=== PATIENT | female | born 1940 | race Caucasian/White ===

== ENCOUNTER 2021-07-27 23:19 | Observation (INO) | payer MEDICARE ==
--- NOTE | 2021-07-27 23:36 | EDM.PDOC ---
ED HPI GENERAL MEDICAL PROBLEM - General Chief Complaint: Neurological Problem Stated Complaint: DIZZINESS, DISORIENTED Time Seen by Provider: 07/27/21 23:26 Source of Information: Reports: Patient, EMS, Family History Limitations: Reports: Altered Mental Status - History of Present Illness INITIAL COMMENTS - FREE TEXT/NARRATIVE: Is 80-year-old female history of dementia and A. fib presented today for altered mental status. Patient son told EMS that she seemed all from her normal baseline yet there. EMS arrived and also noted she was atrial fibrillation at heart rate above 120. On exam patient does not really provide much history says she feels fine. There was no complaints of any fever chills nausea vomiting or any head injuries or falls. - Related Data Allergies Allergy/AdvReac Type Severity Reaction Status Date / Time No Known Allergies Allergy Verified 01/12/21 05:10 Home Meds: Home Meds FLUoxetine HCl [Fluoxetine HCl] 20 mg PO DAILY 01/11/21 [History] Memantine [Namenda] 10 mg PO DAILY 01/11/21 [History] Acetaminophen [Tylenol] 650 mg PO Q8H PRN #30 tablet 01/17/21 [Rx] Apixaban [Eliquis] 5 mg PO BID #30 tablet 01/17/21 [Rx] Nystatin [Nystop] 1 applic TOP TID #1 bottle 01/17/21 [Rx] dilTIAZem HCL [Diltiazem 24Hr Cd] 180 mg PO DAILY #30 cap.er.24h 01/17/21 [Rx] levoFLOXacin [Levaquin] 750 mg PO DAILY #7 tab 01/17/21 [Rx] polyethylene glycoL 3350 [MiraLAX] 17 gm PO BEDTIME PRN #10 packet 01/17/21 [Rx] Past Medical History Cardiovascular History: Reports: [place] [employer] History: Reports: Neurological History: Reports: Other (See Below) Other Neuro History: Dementia, Psychiatric History: Reports: Dementia, Depression Oncologic (Cancer) History: Reports: Breast - Past Surgical History Oncologic Surgical History: Reports: Lumpectomy Social & Family History - Family History Family Medical History: No Pertinent Family History - Caffeine Use Caffeine Use: Reports: None ED ROS GENERAL - Review of Systems Review Of Systems: Unable To Obtain Reason Not Obtained: Patient altered status - Physical Exam Exam: See Below Exam Limited By: Altered Mental Status General Appearance: Alert, No Apparent Distress Eye Exam: Bilateral Eye: EOMI, PERRL Head Exam: Atraumatic Neck: Normal Inspection, Supple, Non-Tender Respiratory/Chest: No Respiratory Distress Cardiovascular: Normal Peripheral Pulses GI/Abdominal: Normal Bowel Sounds Neuro Exam (Abbreviated): Alert, Other (Not oriented which is her baseline) Extremities: Normal Inspection #1 Interpretation EKG Date: 07/28/21 Time: 11:47 Rhythm: A-Fib Rate (Beats/Min): 131 ST-T: Normal Course - Vital Signs Last Recorded V/S: Last Vital Signs Temp 98.8 F 07/27/21 23:24 Pulse 107 H 07/28/21 01:34 Resp 20 07/28/21 01:34 BP 154/90 H 07/28/21 01:34 Pulse Ox 92 L 07/28/21 01:34 - Orders/Labs/Meds Labs: Laboratory Tests 07/27/21 07/28/21 07/28/21 Range/Units 23:57 00:30 01:15 WBC (4.0-11.0) K/uL RBC (4.30-5.90) M/uL Hgb (12.0-16.0) g/dL Hct (36.0-46.0) % MCV (80.0-98.0) fL MCH (27.0-32.0) pg MCHC (31.0-37.0) g/dL RDW Std Deviation (28.0-62.0) fl RDW Coeff of Blas (11.0-15.0) % Plt Count (150-400) K/uL MPV (7.40-12.00) fL Neut % (Auto) (48.0-80.0) % Lymph % (Auto) (16.0-40.0) % Stone % (Auto) (0.0-15.0) % Eos % (Auto) (0.0-7.0) % Baso % (Auto) (0.0-1.5) % Neut # (Auto) (1.4-5.7) K/uL Lymph # (Auto) (0.6-2.4) K/uL Stone # (Auto) (0.0-0.8) K/uL Eos # (Auto) (0.0-0.7) K/uL Baso # (Auto) (0.0-0.1) K/uL Sodium (136-145) mmol/L Potassium (3.5-5.1) mmol/L Chloride (98-107) mmol/L Carbon Dioxide (21.0-32.0) mmol/L BUN (7.0-18.0) mg/dL Creatinine (0.6-1.0) mg/dL Est Cr Clr Drug Dosing mL/min Estimated GFR (MDRD) ml/min Glucose (74-106) mg/dL Lactic Acid 1.4 (0.4-2.0) mmol/L Calcium (8.5-10.1) mg/dL Phosphorus (2.6-4.7) mg/dL Magnesium (1.8-2.4) mg/dL Total Bilirubin (0.2-1.0) mg/dL AST (15-37) IU/L ALT (14-63) IU/L Alkaline Phosphatase (46-116) U/L Total Protein (6.4-8.2) g/dL Albumin (3.4-5.0) g/dL Globulin (2.6-4.0) g/dL Albumin/Globulin Ratio (0.9-1.6) Lipase (73-393) U/L Urine Color YELLOW Urine Appearance CLEAR Urine pH 5.5 (5.0-8.0) Ur Specific [place] >= 1.030 (1.001-1.035) Urine Protein NEGATIVE (NEGATIVE) mg/dL Urine Glucose (UA) NEGATIVE (NEGATIVE) mg/dL Urine Ketones NEGATIVE (NEGATIVE) mg/dL Urine Occult Blood NEGATIVE (NEGATIVE) Urine Nitrite NEGATIVE (NEGATIVE) Urine Bilirubin NEGATIVE (NEGATIVE) Urine Urobilinogen 0.2 (<2.0) EU/dL Ur Leukocyte Esterase NEGATIVE (NEGATIVE) SARS-CoV-2 RNA (MATT) NEGATIVE (NEGATIVE) 07/28/21 07/28/21 Range/Units 01:15 01:15 WBC 12.52 H (4.0-11.0) K/uL RBC 4.99 (4.30-5.90) M/uL Hgb 14.9 (12.0-16.0) g/dL Hct 45.1 (36.0-46.0) % MCV 90.4 (80.0-98.0) fL MCH 29.9 (27.0-32.0) pg MCHC 33.0 (31.0-37.0) g/dL RDW Std Deviation 48.3 (28.0-62.0) fl RDW Coeff of Blas 15 (11.0-15.0) % Plt Count 177 (150-400) K/uL MPV 11.00 (7.40-12.00) fL Neut % (Auto) 85.2 H (48.0-80.0) % Lymph % (Auto) 7.4 L (16.0-40.0) % Stone % (Auto) 6.8 (0.0-15.0) % Eos % (Auto) 0.2 (0.0-7.0) % Baso % (Auto) 0.4 (0.0-1.5) % Neut # (Auto) 10.7 H (1.4-5.7) K/uL Lymph # (Auto) 0.9 (0.6-2.4) K/uL Stone # (Auto) 0.9 H (0.0-0.8) K/uL Eos # (Auto) 0.0 (0.0-0.7) K/uL Baso # (Auto) 0.1 (0.0-0.1) K/uL Sodium 139 (136-145) mmol/L Potassium 4.2 (3.5-5.1) mmol/L Chloride 103 (98-107) mmol/L Carbon Dioxide 28.8 (21.0-32.0) mmol/L BUN 22 H (7.0-18.0) mg/dL Creatinine 1.5 H (0.6-1.0) mg/dL Est Cr Clr Drug Dosing 27.07 mL/min Estimated GFR (MDRD) 33.2 ml/min Glucose 181 H (74-106) mg/dL Lactic Acid (0.4-2.0) mmol/L Calcium 8.0 L (8.5-10.1) mg/dL Phosphorus 3.1 (2.6-4.7) mg/dL Magnesium 1.9 (1.8-2.4) mg/dL Total Bilirubin 1.0 (0.2-1.0) mg/dL AST 21 (15-37) IU/L ALT 18 (14-63) IU/L Alkaline Phosphatase 95 (46-116) U/L Total Protein 6.4 (6.4-8.2) g/dL Albumin 3.1 L (3.4-5.0) g/dL Globulin 3.3 (2.6-4.0) g/dL Albumin/Globulin Ratio 0.9 (0.9-1.6) Lipase 107 (73-393) U/L Urine Color Urine Appearance Urine pH (5.0-8.0) Ur Specific [place] (1.001-1.035) Urine Protein (NEGATIVE) mg/dL Urine Glucose (UA) (NEGATIVE) mg/dL Urine Ketones (NEGATIVE) mg/dL Urine Occult Blood (NEGATIVE) Urine Nitrite (NEGATIVE) Urine Bilirubin (NEGATIVE) Urine Urobilinogen (<2.0) EU/dL Ur Leukocyte Esterase (NEGATIVE) SARS-CoV-2 RNA (MATT) (NEGATIVE) Meds: Medications Discontinued Medications Generic Name Dose Route Start Last Admin Trade Name Freq PRN Reason Stop Dose Admin Diltiazem HCl 20 mg 07/28/21 00:28 07/28/21 03:06 Diltiazem 25 Mg/5 Ml Sdv IVPUSH 07/28/21 00:29 Not Given ONETIME ONE Diltiazem HCl 180 mg 07/28/21 02:32 07/28/21 03:22 Diltiazem 180 Mg Cap.Cd PO 07/28/21 02:33 180 mg ONETIME ONE Administration - Re-Assessments/Exams Free Text/Narrative Re-Assessment/Exam: 07/28/21 02:24 Family states patient is still altered and is not her baseline. Patient does not have a UTI so no source of why patient is more altered. We will admit patient for likely MRI tomorrow. Patient CT head is negative Departure - Departure Time of Disposition: 02:25 Disposition: Refer to Observation Condition: Good Clinical Impression: AMS (altered mental status) - Discharge Information *PRESCRIPTION DRUG MONITORING PROGRAM REVIEWED*: Not Applicable *COPY OF PRESCRIPTION DRUG MONITORING REPORT IN PATIENT DOMONIQUE: Not Applicable Sepsis Event Note (ED) - Focused Exam Vital Signs: Vital Signs Temp Pulse Resp BP Pulse Ox 07/28/21 01:34 107 H 20 154/90 H 92 L 07/27/21 23:24 98.8 F 94 28 H 154/90 H 92 L - Assessment/Plan Plan: Is 80-year-old female presents today for worsening altered mental status. Patient has baseline dementia but patient states that she is a lot worse than her normal baseline is. Patient is a high answer some questions on exam. We will obtain labs x-rays and reassess.
[2021-07-28] MEDS ORDERED: Diltiazem 25 MG/5 ML SDV IVPUSH ONE (00:28)
--- NOTE | 2021-07-28 01:17 | CR ---
Indication: Altered mental status Technique: Chest 1 view Comparison: Chest x-ray 01/11/2021 Findings/Impression: Cardiovascular and mediastinum: Normal heart size with atherosclerotic calcification. Prominence of the right superior mediastinum although similar to the prior exam. Differential includes tortuous vessels, substernal goiter or adenopathy. Lungs and pleural space: Low lung volumes without pleural effusion or pneumothorax. Patchy and linear basilar opacities, probably atelectasis. Bones and soft tissues: Status post left breast and axillary surgery. Right glenohumeral osteoarthritis. Old right 6th rib fracture. Dictated by Onel Shaw MD @ 07/28/2021 1:17:15 AM (Electronically Signed)
[2021-07-28 01:51] LABS: CARBON DIOXIDE,CO2 28.8 mmol/L (21.0-32.0); POTASSIUM,K 4.2 mmol/L (3.5-5.1)
[2021-07-28] MEDS ORDERED: Diltiazem 180 MG Cap.CD PO ONE (02:32)
--- NOTE | 2021-07-28 03:41 | CT ---
INDICATION: Altered mental status TECHNIQUE: CT head without contrast. COMPARISON: Head CT 01/12/2021 FINDINGS: CSF spaces: Within normal limits for age. Brain parenchyma: Mora-white differentiation is distinct. No intracranial bleed or mass effect. Moderate low density in the deep white matter. Skull base and calvarium: Patchy opacification mucosal thickening paranasal sinuses. Atherosclerosis. The visualized orbits are grossly unremarkable. No skull fractures. IMPRESSION: 1. No intracranial bleed or mass effect. 2. Nonspecific white matter disease, likely microangiopathy. Please note that all CT scans at this facility use dose modulation, iterative reconstruction, and/or weight-based dosing when appropriate to reduce radiation dose to as low as reasonably achievable. Dictated by Onel Shaw MD @ 07/28/2021 3:39:32 AM (Electronically Signed)
--- NOTE | 2021-07-28 07:51 | PCM.HP.2 ---
H&P History of Present Illness - General Date of Service: 07/28/21 Admit Problem/Dx: Admission Diagnosis/Problem Admission Diagnosis/Problem Alteration in cognition - History of Present Illness Initial Comments - Free Text/Narative: 80-year-old female with history of A. fib (on eliquis and cardizem), dementia, d epression who per documentation presented to the ED due to AMS. Patient is a poor historian and information was ascertained from her son. Per conversation with patient's son he stated that patient appeared sick, slightly confused, appeared to be short of breath, and believe that she had elevated heart rate at home. On examination patient states she feels fine and is not sure why she is in the hospital. Patient denied fever, chills, nausea, vomiting, abdominal pain, chest pain, shortness of breath. Patient son states that he believes that his mother has not been drinking enough water. ER laboratory, white blood cell 12.5, hemoglobin 14.9, hematocrit 45.1, platelet 177, sodium 139, potassium 4.2, BUN 22, creatinine 1.5, magnesium 1.9, AST 21, ALT 18. Urinalysis negative, COVID-[address] impression, no intracranial bleed or mass-effect. Chest x-ray impression, normal heart size with atherosclerotic calcification. Lung volumes low without pleural effusion or pneumothorax. Patchy linear basilar opacities, probably atelectasis. Patient given 180mg Diltazem in the ED. - Related Data Allergies/Adverse Reactions: Allergies Allergy/AdvReac Type Severity Reaction Status Date / Time No Known Allergies Allergy Verified 07/28/21 10:28 Home Medications: Home Meds FLUoxetine HCl [Fluoxetine HCl] 20 mg PO DAILY 01/11/21 [History] Memantine [Namenda] 10 mg PO DAILY 01/11/21 [History] Acetaminophen [Tylenol] 650 mg PO Q8H PRN #30 tablet 01/17/21 [Rx] Apixaban [Eliquis] 5 mg PO BID #30 tablet 01/17/21 [Rx] Nystatin [Nystop] 1 applic TOP TID #1 bottle 01/17/21 [Rx] dilTIAZem HCL [Diltiazem 24Hr Cd] 180 mg PO DAILY #30 cap.er.24h 01/17/21 [Rx] levoFLOXacin [Levaquin] 750 mg PO DAILY #7 tab 01/17/21 [Rx] polyethylene glycoL 3350 [MiraLAX] 17 gm PO BEDTIME PRN #10 packet 01/17/21 [Rx] Past Medical History Cardiovascular History: Reports: Afib, [place] Respiratory History: Reports: None Gastrointestinal History: Reports: None Genitourinary History: Reports: UTI, Recurrent [employer] History: Reports: Neurological History: Reports: Other (See Below) Other Neuro History: Dementia Psychiatric History: Reports: Dementia, Depression Oncologic (Cancer) History: Reports: Breast - Infectious Disease History Infectious Disease History: Reports: None - Past Surgical History Oncologic Surgical History: Reports: Lumpectomy, Other (See Below) Other Oncologic Surgeries/Procedures: L breast Social & Family History - Family History Family Medical History: No Pertinent Family History - Tobacco Use Tobacco Use Status *Q: Never Tobacco User - Caffeine Use Caffeine Use: Reports: None - Recreational Drug Use Recreational Drug Use: No H&P Review of Systems - Review of Systems: Review Of Systems: See Below General: Denies: Fever, Chills, Weakness Pulmonary: Denies: Shortness of Breath, Wheezing, Cough Cardiovascular: Denies: Chest Pain, Dyspnea on Exertion, Edema Gastrointestinal: Denies: Abdominal Pain, Diarrhea Neurological: Denies: Dizziness, Headache Exam - Exam Exam: See Below - Vital Signs Vital Signs: Last Vital Signs Temp 96.4 F L 07/28/21 07:00 Pulse 87 07/28/21 07:00 Resp 17 07/28/21 07:00 BP 148/84 H 07/28/21 07:00 Pulse Ox 94 L 07/28/21 07:00 Weight: 169 lb 6.4 oz - Exam General: Alert Lungs: Clear to Auscultation, Normal Respiratory Effort Cardiovascular: Regular Rate, Irregular Rhythm GI/Abdominal Exam: Soft, Non-Tender, No Distention Extremities: No Pedal Edema Neuro Extensive - Mental Status: Alert, Disorientation to Time Psychiatric: Alert - Patient Data Lab Results Last 24 hrs: Laboratory Results - last 24 hr 07/27/21 07/28/21 07/28/21 Range/Units 23:57 00:30 01:15 WBC (4.0-11.0) K/uL RBC (4.30-5.90) M/uL Hgb (12.0-16.0) g/dL Hct (36.0-46.0) % MCV (80.0-98.0) fL MCH (27.0-32.0) pg MCHC (31.0-37.0) g/dL RDW Std Deviation (28.0-62.0) fl RDW Coeff of Blas (11.0-15.0) % Plt Count (150-400) K/uL MPV (7.40-12.00) fL Neut % (Auto) (48.0-80.0) % Lymph % (Auto) (16.0-40.0) % Bee % (Auto) (0.0-15.0) % Eos % (Auto) (0.0-7.0) % Baso % (Auto) (0.0-1.5) % Neut # (Auto) (1.4-5.7) K/uL Lymph # (Auto) (0.6-2.4) K/uL Bee # (Auto) (0.0-0.8) K/uL Eos # (Auto) (0.0-0.7) K/uL Baso # (Auto) (0.0-0.1) K/uL Sodium (136-145) mmol/L Potassium (3.5-5.1) mmol/L Chloride (98-107) mmol/L Carbon Dioxide (21.0-32.0) mmol/L BUN (7.0-18.0) mg/dL Creatinine (0.6-1.0) mg/dL Est Cr Clr Drug Dosing mL/min Estimated GFR (MDRD) ml/min Glucose (74-106) mg/dL Lactic Acid 1.4 (0.4-2.0) mmol/L Calcium (8.5-10.1) mg/dL Phosphorus (2.6-4.7) mg/dL Magnesium (1.8-2.4) mg/dL Total Bilirubin (0.2-1.0) mg/dL AST (15-37) IU/L ALT (14-63) IU/L Alkaline Phosphatase (46-116) U/L Total Protein (6.4-8.2) g/dL Albumin (3.4-5.0) g/dL Globulin (2.6-4.0) g/dL Albumin/Globulin Ratio (0.9-1.6) Lipase (73-393) U/L Urine Color YELLOW Urine Appearance CLEAR Urine pH 5.5 (5.0-8.0) Ur Specific [place] >= 1.030 (1.001-1.035) Urine Protein NEGATIVE (NEGATIVE) mg/dL Urine Glucose (UA) NEGATIVE (NEGATIVE) mg/dL Urine Ketones NEGATIVE (NEGATIVE) mg/dL Urine Occult Blood NEGATIVE (NEGATIVE) Urine Nitrite NEGATIVE (NEGATIVE) Urine Bilirubin NEGATIVE (NEGATIVE) Urine Urobilinogen 0.2 (<2.0) EU/dL Ur Leukocyte Esterase NEGATIVE (NEGATIVE) SARS-CoV-2 RNA (MATT) NEGATIVE (NEGATIVE) 07/28/21 07/28/21 Range/Units 01:15 01:15 WBC 12.52 H (4.0-11.0) K/uL RBC 4.99 (4.30-5.90) M/uL Hgb 14.9 (12.0-16.0) g/dL Hct 45.1 (36.0-46.0) % MCV 90.4 (80.0-98.0) fL MCH 29.9 (27.0-32.0) pg MCHC 33.0 (31.0-37.0) g/dL RDW Std Deviation 48.3 (28.0-62.0) fl RDW Coeff of Blas 15 (11.0-15.0) % Plt Count 177 (150-400) K/uL MPV 11.00 (7.40-12.00) fL Neut % (Auto) 85.2 H (48.0-80.0) % Lymph % (Auto) 7.4 L (16.0-40.0) % Bee % (Auto) 6.8 (0.0-15.0) % Eos % (Auto) 0.2 (0.0-7.0) % Baso % (Auto) 0.4 (0.0-1.5) % Neut # (Auto) 10.7 H (1.4-5.7) K/uL Lymph # (Auto) 0.9 (0.6-2.4) K/uL Bee # (Auto) 0.9 H (0.0-0.8) K/uL Eos # (Auto) 0.0 (0.0-0.7) K/uL Baso # (Auto) 0.1 (0.0-0.1) K/uL Sodium 139 (136-145) mmol/L Potassium 4.2 (3.5-5.1) mmol/L Chloride 103 (98-107) mmol/L Carbon Dioxide 28.8 (21.0-32.0) mmol/L BUN 22 H (7.0-18.0) mg/dL Creatinine 1.5 H (0.6-1.0) mg/dL Est Cr Clr Drug Dosing 27.07 mL/min Estimated GFR (MDRD) 33.2 ml/min Glucose 181 H (74-106) mg/dL Lactic Acid (0.4-2.0) mmol/L Calcium 8.0 L (8.5-10.1) mg/dL Phosphorus 3.1 (2.6-4.7) mg/dL Magnesium 1.9 (1.8-2.4) mg/dL Total Bilirubin 1.0 (0.2-1.0) mg/dL AST 21 (15-37) IU/L ALT 18 (14-63) IU/L Alkaline Phosphatase 95 (46-116) U/L Total Protein 6.4 (6.4-8.2) g/dL Albumin 3.1 L (3.4-5.0) g/dL Globulin 3.3 (2.6-4.0) g/dL Albumin/Globulin Ratio 0.9 (0.9-1.6) Lipase 107 (73-393) U/L Urine Color Urine Appearance Urine pH (5.0-8.0) Ur Specific [place] (1.001-1.035) Urine Protein (NEGATIVE) mg/dL Urine Glucose (UA) (NEGATIVE) mg/dL Urine Ketones (NEGATIVE) mg/dL Urine Occult Blood (NEGATIVE) Urine Nitrite (NEGATIVE) Urine Bilirubin (NEGATIVE) Urine Urobilinogen (<2.0) EU/dL Ur Leukocyte Esterase (NEGATIVE) SARS-CoV-2 RNA (MATT) (NEGATIVE) Result Diagrams: 07/28/21 01:15 07/28/21 01:15 Sepsis Event Note - Evaluation Sepsis Screening Result: No Definite Risk - Focused Exam Vital Signs: Vital Signs Temp Pulse Resp BP Pulse Ox 07/28/21 07:00 96.4 F L 87 17 148/84 H 94 L 07/28/21 04:30 98.2 F 120 H 18 160/84 H 93 L 07/28/21 04:20 104 H 20 151/87 H 94 L 07/28/21 01:34 107 H 20 154/90 H 92 L 07/27/21 23:24 98.8 F 94 28 H 154/90 H 92 L - Problem List (1) AMS (altered mental status) SNOMED Code(s): 311565702 ICD Code: R41.82 - ALTERED MENTAL STATUS, UNSPECIFIED Status: Acute Current Visit: Yes (2) Afib SNOMED Code(s): 17526821 ICD Code: I48.91 - UNSPECIFIED ATRIAL FIBRILLATION Status: Acute Current Visit: No (3) Anticoagulated SNOMED Code(s): 205775289, 410608562 ICD Code: Z79.01 - [facility] (CURRENT) USE OF ANTICOAGULANTS Status: Acute Current Visit: No (4) Dementia SNOMED Code(s): 85684607 ICD Code: F03.90 - UNSPECIFIED DEMENTIA WITHOUT BEHAVIORAL DISTURBANCE Status: Chronic Current Visit: No Problem List Initiated/Reviewed/Updated: Yes Orders Last 24hrs: Active Orders 24 hr Category Date Time Status Patient Status [ADT] Routine ADT 07/28/21 02:25 Active Telemetry Monitoring [Cardiac Monitoring] [RC] . Care 07/28/21 04:20 Active DIRECTED Regular Diet [DIET] Diet 07/28/21 Breakfast Active Assessment/Plan Comment:: AMS secondary to dehydration- LR 100 mLs/h X 1 L, encourage oral fluid intake, BMP AM A. fib- Eliquis 5 mg twice daily, diltiazem 180 mg p.o. daily, cardiac telemetry Consult physical therapy for ambulation assessment Resume fluoxetine, memantine
[2021-07-28] MEDS: Apixaban 5 MG Tab PO SCH ×2 (08:49→20:29)
[2021-07-28] MEDS: Memantine 10 MG Tab PO SCH (08:49)
[2021-07-28] MEDS: FLUoxetine 20 MG Cap PO SCH (08:49)
[2021-07-28] MEDS ORDERED: Diltiazem 180 MG Cap.CD PO SCH (09:00)
[2021-07-28] MEDS ORDERED: Acetaminophen 325 MG Tab PO PRN (10:21)
[2021-07-28] MEDS ORDERED: Lactated Ringers 1,000 ML IV SCH (10:30)
[2021-07-29 07:15] LABS: CARBON DIOXIDE,CO2 29.8 mmol/L (21.0-32.0); POTASSIUM,K 4.9 mmol/L (3.5-5.1)
[2021-07-29] MEDS: Memantine 10 MG Tab PO SCH (08:23)
[2021-07-29] MEDS: Diltiazem 180 MG Cap.CD PO SCH ×2 (08:23→09:57)
[2021-07-29] MEDS: FLUoxetine 20 MG Cap PO SCH (08:23)
[2021-07-29] MEDS: Apixaban 5 MG Tab PO SCH (08:23)
--- NOTE | 2021-07-29 13:41 | PCM.DCSUM1 ---
Discharge Summary - Hospital Course Free Text/Narrative:: 80-year-old female with history of A. fib (on eliquis and cardizem), dementia, depression who per documentation presented to the ED due to AMS. Patient is a poor historian and information was ascertained from her son. Per conversation with patient's son he stated that patient appeared sick, slightly confused, appeared to be short of breath, and believe that she had elevated heart rate at home. On examination patient states she feels fine and is not sure why she is in the hospital. Patient denied fever, chills, nausea, vomiting, abdominal pain, chest pain, shortness of breath. Patient son states that he believes that his mother has not been drinking enough water. ER laboratory, white blood cell 12.5, hemoglobin 14.9, hematocrit 45.1, platelet 177, sodium 139, potassium 4.2, BUN 22, creatinine 1.5, magnesium 1.9, AST 21, ALT 18. Urinalysis negative, COVID-[address] impression, no intracranial bleed or mass-effect. Chest x-ray impression, normal heart size with atherosclerotic calcification. Lung volumes low without pleural effusion or pneumothorax. Patchy linear basilar opacities, probably atelectasis. Patient given 180mg Diltazem in the ED. Patient was given IV fluids, encouraged oral liquid intake. Patient was evaluated by physical therapy with recommendation for home health PT and walker as necessary. Patient to resume currently prescribed medications. Patient discharged home in stable condition. - Discharge Data Discharge Date: 07/29/21 Discharge Disposition: Home, Home Health Agency 06 Condition: Stable - Referral to Home Health Date of Face to Face Encounter: 07/29/21 Reason for Homebound Status: weakness and deconditioning due to hospitilization Primary Care Physician: PCP None Skilled Need: Physical therapy, strengthening due to weakness from recent hospitilization - Discharge Diagnosis/Problem(s) (1) AMS (altered mental status) SNOMED Code(s): 041742750 ICD Code: R41.82 - ALTERED MENTAL STATUS, UNSPECIFIED Status: Acute Current Visit: Yes (2) Afib SNOMED Code(s): 83122332 ICD Code: I48.91 - UNSPECIFIED ATRIAL FIBRILLATION Status: Acute Current Visit: No (3) Anticoagulated SNOMED Code(s): 559073252, 107972343 ICD Code: Z79.01 - TERRITORY SALES CONSULTANT (CURRENT) USE OF ANTICOAGULANTS Status: Acute Current Visit: No (4) Dementia SNOMED Code(s): 76363249 ICD Code: F03.90 - UNSPECIFIED DEMENTIA WITHOUT BEHAVIORAL DISTURBANCE Status: Chronic Current Visit: No - Patient Summary/Data Consults: Consultations 07/28/21 10:17 Consult to Physical Therapy [PT Evaluation and Treatment] [CONS] Routine 07/29/21 11:41 Consult to Home Health [CONS] Routine - Discharge Plan *PRESCRIPTION DRUG MONITORING PROGRAM REVIEWED*: Not Applicable *COPY OF PRESCRIPTION DRUG MONITORING REPORT IN PATIENT DOMONIQUE: Not Applicable Home Medications: Home Meds FLUoxetine HCl [Fluoxetine HCl] 20 mg PO DAILY 01/11/21 [History] Memantine [Namenda] 10 mg PO DAILY 01/11/21 [History] Acetaminophen [Tylenol] 650 mg PO Q8H PRN #30 tablet 01/17/21 [Rx] Apixaban [Eliquis] 5 mg PO BID #30 tablet 01/17/21 [Rx] Nystatin [Nystop] 1 applic TOP TID #1 bottle 01/17/21 [Rx] dilTIAZem HCL [Diltiazem 24Hr ER (Cd)] 180 mg PO DAILY #30 cap.er.24h 01/17/21 [Rx] levoFLOXacin [Levaquin] 750 mg PO DAILY #7 tab 01/17/21 [Rx] polyethylene glycoL 3350 [MiraLAX] 17 gm PO BEDTIME PRN #10 packet 01/17/21 [Rx] Patient Handouts: Confusion, Dehydration, Adult, Curo-sr-Krar Referrals: Noam Layton MD [Ordering Only Provider] - 08/05/21 12:30 pm - Discharge Summary/Plan Comment DC Time >30 min.: Yes Total # of Minutes for Discharge Time: 35 - General Info Date of Service: 07/29/21 Subjective Update: Patient states she feels well today. Patient denies chest pain, shortness of breath, fever, chills, nausea, vomiting. Upon questioning patient appears to be alert and oriented. - Review of Systems General: Denies: Fever, Chills Pulmonary: Denies: Shortness of Breath Cardiovascular: Denies: Chest Pain, Dyspnea on Exertion, Orthopnea, Edema Gastrointestinal: Denies: Abdominal Pain, Decreased Appetite, Diarrhea, Nausea, Vomiting Neurological: Denies: Confusion, Dizziness, Trouble Speaking, Difficulty Walking, Change in Speech Psychiatric: Denies: Confusion - Patient Data Vitals - Most Recent: Last Vital Signs Temp 98.2 F 07/29/21 11:50 Pulse 90 07/29/21 11:50 Resp 20 07/29/21 11:50 BP 118/76 07/29/21 11:50 Pulse Ox 94 L 07/29/21 11:50 Weight - Most Recent: 169 lb 6.4 oz I&O - Last 24 hours: Intake & Output 07/28/21 07/29/21 07/29/21 22:59 06:59 14:59 Intake Total 360 1300 Output Total 0 Balance 360 1300 Lab Results - Last 24 hrs: Laboratory Results - last 24 hr 07/29/21 07/29/21 Range/Units 05:32 05:32 WBC 10.32 (4.0-11.0) K/uL RBC 5.09 (4.30-5.90) M/uL Hgb 15.2 (12.0-16.0) g/dL Hct 46.0 (36.0-46.0) % MCV 90.4 (80.0-98.0) fL MCH 29.9 (27.0-32.0) pg MCHC 33.0 (31.0-37.0) g/dL RDW Std Deviation 49.7 (28.0-62.0) fl RDW Coeff of Blas 15 (11.0-15.0) % Plt Count 172 (150-400) K/uL MPV 11.80 (7.40-12.00) fL Neut % (Auto) 68.7 (48.0-80.0) % Lymph % (Auto) 15.6 L (16.0-40.0) % [place] % (Auto) 12.0 (0.0-15.0) % Eos % (Auto) 3.5 (0.0-7.0) % Baso % (Auto) 0.2 (0.0-1.5) % Neut # (Auto) 7.1 H (1.4-5.7) K/uL Lymph # (Auto) 1.6 (0.6-2.4) K/uL [place] # (Auto) 1.2 H (0.0-0.8) K/uL Eos # (Auto) 0.4 (0.0-0.7) K/uL Baso # (Auto) 0.0 (0.0-0.1) K/uL Nucleated RBC % 0.0 /100WBC Nucleated RBCs # 0 K/uL Sodium 144 (136-145) mmol/L Potassium 4.9 (3.5-5.1) mmol/L Chloride 105 (98-107) mmol/L Carbon Dioxide 29.8 (21.0-32.0) mmol/L BUN 27 H (7.0-18.0) mg/dL Creatinine 1.2 H (0.6-1.0) mg/dL Est Cr Clr Drug Dosing 34.02 mL/min Estimated GFR (MDRD) 43.0 ml/min Glucose 114 H (74-106) mg/dL Calcium 8.8 (8.5-10.1) mg/dL Med Orders - Current: Current Medications Acetaminophen (Acetaminophen 325 Mg Tab) 650 mg PO Q4H PRN PRN Reason: Pain (Mild 1-3)/fever Apixaban (Apixaban 5 Mg Tab) 5 mg PO BID [facility] Last Admin: 07/29/21 08:23 Dose: 5 mg Documented by: Diltiazem HCl (Diltiazem 180 Mg Cap.Cd) 180 mg PO DAILY [facility] Last Admin: 07/29/21 09:57 Dose: Not Given Documented by: Fluoxetine HCl (Fluoxetine 20 Mg Cap) 20 mg PO DAILY [facility] Last Admin: 07/29/21 08:23 Dose: 20 mg Documented by: Memantine (Memantine 10 Mg Tab) 10 mg PO DAILY [facility] Last Admin: 07/29/21 08:23 Dose: 10 mg Documented by: Discontinued Medications Diltiazem HCl (Diltiazem 25 Mg/5 Ml Sdv) 20 mg IVPUSH ONETIME ONE Stop: 07/28/21 00:29 Last Admin: 07/28/21 03:06 Dose: Not Given Documented by: Diltiazem HCl (Diltiazem 180 Mg Cap.Cd) 180 mg PO ONETIME ONE Stop: 07/28/21 02:33 Last Admin: 07/28/21 03:22 Dose: 180 mg Documented by: Diltiazem HCl (Diltiazem 180 Mg Cap.Cd) 180 mg PO DAILY [facility] Lactated Ringer's (Ringers, Lactated) 1,000 mls @ 100 mls/hr IV ASDIRECTED [facility] Stop: 07/28/21 20:29 Last Admin: 07/28/21 18:52 Dose: 100 mls/hr Documented by: - Exam Lungs: Reports: Clear to Auscultation, Normal Respiratory Effort Cardiovascular: Reports: Regular Rate, Irregular Rhythm GI/Abdominal Exam: Soft, Non-Tender Extremities: No Pedal Edema Neurological: Reports: Normal Speech, Normal Tone, Strength Equal Bilateral Psy/Mental Status: Reports: Alert
== END 2021-07-29 15:25 | disposition home health service (06) ==
LOC: MW.ED 23:19 → MW.MS 07-28 02:25
PROVIDERS: ADMIT Internal Medicine; ATTEND Internal Medicine
DX: R41.82 Altered mental status, unspecified (principal); I48.91 Unspecified atrial fibrillation; I25.2 Old myocardial infarction; F03.90 Unspecified dementia, unspecified severity, without behavioral disturbance, psychotic disturbance, mood disturbance, and anxiety; E86.0 Dehydration; F32.9 Major depressive disorder, single episode, unspecified; Z79.01 Long term (current) use of anticoagulants; Z79.899 Other long term (current) drug therapy; Z98.890 Other specified postprocedural states; Z20.822 Contact with and (suspected) exposure to COVID-19
CPT/HCPCS: 36415; 70450; 71045; 80048; 80053; 81003; 83605; 83690; 83735; 84100; 85025; 93005; 97110; 97161; 99285; A9270; G0378; J7120; U0002

== ENCOUNTER 2021-09-09 12:10 | Emergency (ER) | payer MEDICARE ==
[2021-09-09] MEDS ORDERED: Sodium Chloride 0.9% 10 ML Syringe FLUSH PRN (12:13)
[2021-09-09] MEDS ORDERED: Sodium Chloride 0.9% 2.5 ML Syringe FLUSH PRN (12:13)
[2021-09-09] MEDS ORDERED: Sodium Chloride 0.9% 20 ML SDV IV PRN (12:13)
--- NOTE | 2021-09-09 12:27 | EDM.PDOC ---
ED HPI GENERAL MEDICAL PROBLEM - General Chief Complaint: Neuro Symptoms/Deficits Stated Complaint: EMS Time Seen by Provider: 09/09/21 12:10 Source of Information: Reports: EMS History Limitations: Reports: Altered Mental Status - History of Present Illness INITIAL COMMENTS - FREE TEXT/NARRATIVE: Patient is 80-year-old female history of dementia on a failure brought in by EMS for possible stroke old. Patient home with a daughter she is more confused than her baseline EMS thought she may have some right-sided weakness patient was taken to the CT scanner where CT was negative. Patient family is not here difficult to obtain history from patient we know patient is on Eliquis and diltiazem. This patient for me on exam is moving all extremities seems to be at her baseline from what I am getting from previous notes. Patient had elevated troponin as well. We asked patient if he had any chest pain she did mention yes but again patient is difficult to obtain history from. - Related Data Allergies Allergy/AdvReac Type Severity Reaction Status Date / Time No Known Allergies Allergy Verified 07/28/21 10:28 Home Meds: Home Meds FLUoxetine HCl [Fluoxetine HCl] 20 mg PO DAILY 01/11/21 [History] Memantine [Namenda] 10 mg PO DAILY 01/11/21 [History] Acetaminophen [Tylenol] 650 mg PO Q8H PRN #30 tablet 01/17/21 [Rx] Apixaban [Eliquis] 5 mg PO BID #30 tablet 01/17/21 [Rx] Nystatin [Nystop] 1 applic TOP TID #1 bottle 01/17/21 [Rx] dilTIAZem HCL [Diltiazem 24Hr ER (Cd)] 180 mg PO DAILY #30 cap.er.24h 01/17/21 [Rx] levoFLOXacin [Levaquin] 750 mg PO DAILY #7 tab 01/17/21 [Rx] polyethylene glycoL 3350 [MiraLAX] 17 gm PO BEDTIME PRN #10 packet 01/17/21 [Rx] Past Medical History Cardiovascular History: Reports: Afib, [place] Respiratory History: Reports: None Gastrointestinal History: Reports: None Genitourinary History: Reports: UTI, Recurrent DIRECTOR STERILE PROCESSING History: Reports: Neurological History: Reports: Other (See Below) Other Neuro History: Dementia Psychiatric History: Reports: Dementia, Depression Oncologic (Cancer) History: Reports: Breast - Infectious Disease History Infectious Disease History: Reports: None - Past Surgical History Oncologic Surgical History: Reports: Lumpectomy, Other (See Below) Other Oncologic Surgeries/Procedures: L breast Social & Family History - Family History Family Medical History: No Pertinent Family History - Caffeine Use Caffeine Use: Reports: None ED ROS GENERAL - Review of Systems Review Of Systems: Unable To Obtain Reason Not Obtained: Baseline dementia ED EXAM, NEURO - Physical Exam Exam: See Below Exam Limited By: Altered Mental Status General Appearance: Alert, WD/WN, No Apparent Distress Eye Exam: Bilateral Eye: EOMI, PERRL Throat/Mouth: Normal Inspection Head Exam: Atraumatic Neck: Normal Inspection Respiratory/Chest: No Respiratory Distress, Lungs Clear, Normal Breath Sounds Cardiovascular: Normal Peripheral Pulses, Regular Rate, Rhythm GI/Abdominal: Normal Bowel Sounds, Soft, Non-Tender Neurological: Alert (Patient knows name), Normal Dorsiflexion, CN II-XII Intact, No Motor/Sensory Deficits #1 Interpretation EKG Date: 09/09/21 Time: 12:06 Rhythm: A-Fib Rate (Beats/Min): 86 ST-T: Normal Course - Vital Signs Last Recorded V/S: Last Vital Signs Temp 95.7 F L 09/09/21 12:10 Pulse 70 09/09/21 14:49 Resp 16 09/09/21 14:49 BP 135/68 09/09/21 14:49 Pulse Ox 96 09/09/21 14:49 - Orders/Labs/Meds Orders: Active Orders 24 hr Category Date Time Status Assess Neurological Status [RC] ASDIRECTED Care 09/09/21 12:13 Active Bedrest [RC] ASDIRECTED Care 09/09/21 12:13 Active Cardiac Monitoring [RC] . DIRECTED Care 09/09/21 12:13 Active Cardiac Monitoring [RC] STAT Care 09/09/21 13:15 Active Communication Order [RC] PER UNIT ROUTINE Care 09/09/21 13:15 Active Communication Order [RC] PER UNIT ROUTINE Care 09/09/21 13:15 Active EKG 12 Lead [EKG Documentation Completion] [RC] STAT Care 09/09/21 16:25 Active Height and Weight [RC] UPON Care 09/09/21 12:13 Active Initiate Acute Stroke Protocol [RC] STAT Care 09/09/21 12:13 Active NIH Stroke Scale [RC] ASDIRECTED Care 09/09/21 12:13 Active Oxygen Therapy [RC] ASDIRECTED Care 09/09/21 13:15 Active Vital Signs [RC] Q1H Care 09/09/21 12:13 Active Chest PE [Ang Chest] [CT] Stat Exams 09/09/21 15:51 Ordered PTT,PARTIAL THROMBOPLSTIN TIME [COAG] Q6H Lab 09/10/21 01:30 Ordered PTT,PARTIAL THROMBOPLSTIN TIME [COAG] Q6H Lab 09/10/21 07:30 Ordered PTT,PARTIAL THROMBOPLSTIN TIME [COAG] Q6H Lab 09/10/21 13:30 Ordered PTT,PARTIAL THROMBOPLSTIN TIME [COAG] Q6H Lab 09/10/21 19:30 Ordered PTT,PARTIAL THROMBOPLSTIN TIME [COAG] Q6H Lab 09/11/21 01:30 Ordered TROPONIN I [CHEM] Stat Lab 09/09/21 16:10 Received Heparin Sodium/0.45% NaCl [Heparin 25,000 Units in 1/2 Med 09/09/21 13:30 Active NS 500 ML] 500 ml IV TITRATE Heparin Sodium/0.45% NaCl [Heparin 25,000 Units in 1/2 Med 09/09/21 14:00 Active NS 500 ML] 500 ml IV TITRATE Nitroglycerin [Nitrostat] Med 09/09/21 13:27 Active 0.4 mg SL Q5M PRN Sodium Chloride 0.9% [Normal Saline] Med 09/09/21 12:13 Active 10 ml IV ASDIRECTED PRN Sodium Chloride 0.9% [Saline Flush] Med 09/09/21 12:13 Active 10 ml FLUSH ASDIRECTED PRN Sodium Chloride 0.9% [Saline Flush] Med 09/09/21 12:13 Active 2.5 ml FLUSH ASDIRECTED PRN Peripheral IV Insertion Adult [OM.PC] Stat Oth 09/09/21 12:13 Ordered Peripheral IV Insertion Adult [OM.PC] Stat Oth 09/09/21 12:13 Ordered Medication Orders Heparin Sodium/Sodium Chloride (Heparin 25,000 Units In 1/2 Ns 500 Ml) 500 mls @ 21.772 mls/hr IV TITRATE LARRY; Protocol Heparin Sodium/Sodium Chloride (Heparin 25,000 Units In 1/2 Ns 500 Ml) 500 mls @ 21.772 mls/hr IV TITRATE LARRY; Protocol Last Admin: 09/09/21 13:59 Dose: 11.1 units/kg/hr, 20.139 mls/hr Documented by: NEGRO Cosigned by: [id number] Nitroglycerin (Nitroglycerin 0.4 Mg Tab.Sl) 0.4 mg SL Q5M PRN PRN Reason: Chest Pain Sodium Chloride (Sodium Chloride 0.9% 10 Ml Syringe) 10 ml FLUSH ASDIRECTED PRN PRN Reason: Keep Vein Open Last Admin: 09/09/21 13:23 Dose: 10 ml Documented by: NEGRO Sodium Chloride (Sodium Chloride 0.9% 2.5 Ml Syringe) 2.5 ml FLUSH ASDIRECTED PRN PRN Reason: Keep Vein Open Last Admin: 09/09/21 13:23 Dose: 2.5 ml Documented by: NEGRO Sodium Chloride (Sodium Chloride 0.9% 20 Ml Sdv) 10 ml IV ASDIRECTED PRN PRN Reason: IV Use Labs: Laboratory Tests 09/09/21 09/09/21 09/09/21 Range/Units 12:13 12:13 12:13 WBC 11.07 H (4.0-11.0) K/uL RBC 4.88 (4.30-5.90) M/uL Hgb 14.7 (12.0-16.0) g/dL Hct 44.5 (36.0-46.0) % MCV 91.2 (80.0-98.0) fL MCH 30.1 (27.0-32.0) pg MCHC 33.0 (31.0-37.0) g/dL RDW Std Deviation 52.8 (28.0-62.0) fl RDW Coeff of Blas 16 H (11.0-15.0) % Plt Count 201 (150-400) K/uL MPV 11.90 (7.40-12.00) fL Neut % (Auto) 69.4 (48.0-80.0) % Lymph % (Auto) 16.4 (16.0-40.0) % [place] % (Auto) 8.9 (0.0-15.0) % Eos % (Auto) 4.8 (0.0-7.0) % Baso % (Auto) 0.5 (0.0-1.5) % Neut # (Auto) 7.7 H (1.4-5.7) K/uL Lymph # (Auto) 1.8 (0.6-2.4) K/uL [place] # (Auto) 1.0 H (0.0-0.8) K/uL Eos # (Auto) 0.5 (0.0-0.7) K/uL Baso # (Auto) 0.1 (0.0-0.1) K/uL Nucleated RBC % 0.0 /100WBC Nucleated RBCs # 0 K/uL INR 1.13 APTT 23.7 (18.6-31.3) SEC Sodium 137 (136-145) mmol/L Potassium 3.7 (3.5-5.1) mmol/L Chloride 103 (98-107) mmol/L Carbon Dioxide 22.0 (21.0-32.0) mmol/L BUN 23 H (7.0-18.0) mg/dL Creatinine 1.3 H (0.6-1.0) mg/dL Est Cr Clr Drug Dosing TNP Estimated GFR (MDRD) 39.2 ml/min Glucose 236 H (74-106) mg/dL Calcium 9.1 (8.5-10.1) mg/dL Total Bilirubin 1.5 H (0.2-1.0) mg/dL AST 20 (15-37) IU/L ALT 25 (14-63) IU/L Alkaline Phosphatase 97 (46-116) U/L Troponin I 0.318 H* (0.000-0.056) ng/mL Total Protein 7.2 (6.4-8.2) g/dL Albumin 3.0 L (3.4-5.0) g/dL Globulin 4.2 H (2.6-4.0) g/dL Albumin/Globulin Ratio 0.7 L (0.9-1.6) SARS-CoV-2 RNA (MATT) (NEGATIVE) 09/09/21 Range/Units 14:17 WBC (4.0-11.0) K/uL RBC (4.30-5.90) M/uL Hgb (12.0-16.0) g/dL Hct (36.0-46.0) % MCV (80.0-98.0) fL MCH (27.0-32.0) pg MCHC (31.0-37.0) g/dL RDW Std Deviation (28.0-62.0) fl RDW Coeff of Blas (11.0-15.0) % Plt Count (150-400) K/uL MPV (7.40-12.00) fL Neut % (Auto) (48.0-80.0) % Lymph % (Auto) (16.0-40.0) % [place] % (Auto) (0.0-15.0) % Eos % (Auto) (0.0-7.0) % Baso % (Auto) (0.0-1.5) % Neut # (Auto) (1.4-5.7) K/uL Lymph # (Auto) (0.6-2.4) K/uL [place] # (Auto) (0.0-0.8) K/uL Eos # (Auto) (0.0-0.7) K/uL Baso # (Auto) (0.0-0.1) K/uL Nucleated RBC % /100WBC Nucleated RBCs # K/uL INR APTT (18.6-31.3) SEC Sodium (136-145) mmol/L Potassium (3.5-5.1) mmol/L Chloride (98-107) mmol/L Carbon Dioxide (21.0-32.0) mmol/L BUN (7.0-18.0) mg/dL Creatinine (0.6-1.0) mg/dL Est Cr Clr Drug Dosing Estimated GFR (MDRD) ml/min Glucose (74-106) mg/dL Calcium (8.5-10.1) mg/dL Total Bilirubin (0.2-1.0) mg/dL AST (15-37) IU/L ALT (14-63) IU/L Alkaline Phosphatase (46-116) U/L Troponin I (0.000-0.056) ng/mL Total Protein (6.4-8.2) g/dL Albumin (3.4-5.0) g/dL Globulin (2.6-4.0) g/dL Albumin/Globulin Ratio (0.9-1.6) SARS-CoV-2 RNA (MATT) NEGATIVE (NEGATIVE) Meds: Medications Generic Name Dose Route Start Last Admin Trade Name Dana PRN Reason Stop Dose Admin Heparin Sodium/Sodium Chloride 500 mls @ 21.772 mls/hr 09/09/21 13:30 Heparin 25,000 Units In 1/2 Ns 500 Ml IV TITRATE LARRY Protocol 12 UNITS/KG/HR Heparin Sodium/Sodium Chloride 500 mls @ 21.772 mls/hr 09/09/21 14:00 09/09/21 13:59 Heparin 25,000 Units In 1/2 Ns 500 Ml IV 11.1 units/kg/hr TITRATE LARRY 20.139 mls/hr Administration Protocol 12 UNITS/KG/HR Nitroglycerin 0.4 mg 09/09/21 13:27 Nitroglycerin 0.4 Mg Tab.Sl SL Q5M PRN Chest Pain Sodium Chloride 10 ml 09/09/21 12:13 09/09/21 13:23 Sodium Chloride 0.9% 10 Ml Syringe FLUSH 10 ml ASDIRECTED PRN Administration Keep Vein Open Sodium Chloride 2.5 ml 09/09/21 12:13 09/09/21 13:23 Sodium Chloride 0.9% 2.5 Ml Syringe FLUSH 2.5 ml ASDIRECTED PRN Administration Keep Vein Open Sodium Chloride 10 ml 09/09/21 12:13 Sodium Chloride 0.9% 20 Ml Sdv IV ASDIRECTED PRN IV Use Discontinued Medications Generic Name Dose Route Start Last Admin Trade Name Dana PRN Reason Stop Dose Admin Aspirin 324 mg 09/09/21 13:15 09/09/21 13:22 Aspirin 81 Mg Tab.Chew PO 09/09/21 13:16 324 mg ONETIME ONE Administration Clopidogrel Bisulfate 300 mg 09/09/21 13:15 09/09/21 13:22 Clopidogrel 75 Mg Tab PO 09/09/21 13:16 300 mg ONETIME ONE Administration Heparin Sodium (Porcine) 4,000 units 09/09/21 13:19 09/09/21 13:27 Heparin Sodium 5,000 Units/Ml Vial IVPUSH 09/09/21 13:20 4,000 units .BOLUS ONE Administration Iopamidol 80 ml 09/09/21 13:21 09/09/21 13:23 Iopamidol 755 Mg/Ml 500 Ml Multipack Bottle IVPUSH 09/09/21 13:22 80 ml ONETIME STA Administration Metoprolol Tartrate 5 mg 09/09/21 13:28 09/09/21 13:33 Metoprolol Tartrate 5 Mg/5 Ml Sdv IVPUSH 09/09/21 13:29 5 mg ONETIME ONE Administration - Re-Assessments/Exams Free Text/Narrative Re-Assessment/Exam: 09/09/21 14:58 We have call [facility] one has any beds available we will continue to call places for admissions. 09/09/21 16:32 Has been accepted to [facility] will transfer patient. Patient CTA head and neck showed a possible PE will repeat PE study chest here pedicel heparin drip. Departure - Departure Time of Disposition: 16:33 Disposition: DC/Tfer to Acute Hospital 02 Condition: Good Clinical Impression: NSTEMI (non-ST elevated myocardial infarction) - Discharge Information Forms: ED Department Discharge Critical Care Note - Critical Care Note Total Time (mins): 45 Comments: Critical Care Procedure Note Authorized and Performed by: Dr. Ivey Total critical care time: Approximately Due to a high probability of clinically significant, life threatening deterio ration, the patient required my highest level of preparedness to intervene emergently and I personally spent this critical care time directly and personally managing the patient. This critical care time included obtaining a history; examining the patient; pulse oximetry; ordering and review of studies; arranging urgent treatment with development of a management plan; evaluation of patient's response to treatment; frequent reassessment; and, discussions with other providers. This critical care time was performed to assess and manage the high probability of imminent, life-threatening deterioration that could result in multi-organ failure. It was exclusive of separately billable procedures and treating other patients and teaching time. Sepsis Event Note (ED) - Evaluation Sepsis Screening Result: No Definite Risk - Focused Exam Vital Signs: Vital Signs Temp Pulse Pulse Resp BP BP Pulse Ox 09/09/21 14:49 70 16 135/68 96 09/09/21 14:03 66 133/56 L 93 L 09/09/21 13:33 72 123/95 H 09/09/21 13:32 74 123/95 H 96 09/09/21 13:18 71 136/74 95 09/09/21 12:56 83 141/66 H 95 09/09/21 12:41 111 H 128/72 95 09/09/21 12:26 76 93 L 09/09/21 12:10 95.7 F L 116 H 20 150/69 H 94 L - My Orders Last 24 Hours: My Active Orders 09/09/21 13:15 Cardiac Monitoring [RC] STAT Communication Order [RC] PER UNIT ROUTINE Communication Order [RC] PER UNIT ROUTINE Oxygen Therapy [RC] ASDIRECTED 09/09/21 13:27 Nitroglycerin [Nitrostat] 0.4 mg SL Q5M PRN 09/09/21 13:30 Heparin Sodium/0.45% NaCl [Heparin 25,000 Units in 1/2 NS 500 ML] 500 ml IV TI TRATE 09/09/21 14:00 Heparin Sodium/0.45% NaCl [Heparin 25,000 Units in 1/2 NS 500 ML] 500 ml IV TITRATE 09/09/21 15:51 Chest PE [Ang Chest] [CT] Stat 09/09/21 16:10 TROPONIN I [CHEM] Stat 09/09/21 16:25 EKG 12 Lead [EKG Documentation Completion] [RC] STAT 09/10/21 01:30 PTT,PARTIAL THROMBOPLSTIN TIME [COAG] Q6H 09/10/21 07:30 PTT,PARTIAL THROMBOPLSTIN TIME [COAG] Q6H 09/10/21 13:30 PTT,PARTIAL THROMBOPLSTIN TIME [COAG] Q6H 09/10/21 19:30 PTT,PARTIAL THROMBOPLSTIN TIME [COAG] Q6H 09/11/21 01:30 PTT,PARTIAL THROMBOPLSTIN TIME [COAG] Q6H - Assessment/Plan Last 24 Hours: My Active Orders 09/09/21 13:15 Cardiac Monitoring [RC] STAT Communication Order [RC] PER UNIT ROUTINE Communication Order [RC] PER UNIT ROUTINE Oxygen Therapy [RC] ASDIRECTED 09/09/21 13:27 Nitroglycerin [Nitrostat] 0.4 mg SL Q5M PRN 09/09/21 13:30 Heparin Sodium/0.45% NaCl [Heparin 25,000 Units in 1/2 NS 500 ML] 500 ml IV TITRATE 09/09/21 14:00 Heparin Sodium/0.45% NaCl [Heparin 25,000 Units in 1/2 NS 500 ML] 500 ml IV TITRATE 09/09/21 15:51 Chest PE [Ang Chest] [CT] Stat 09/09/21 16:10 TROPONIN I [CHEM] Stat 09/09/21 16:25 EKG 12 Lead [EKG Documentation Completion] [RC] STAT 09/10/21 01:30 PTT,PARTIAL THROMBOPLSTIN TIME [COAG] Q6H 09/10/21 07:30 PTT,PARTIAL THROMBOPLSTIN TIME [COAG] Q6H 09/10/21 13:30 PTT,PARTIAL THROMBOPLSTIN TIME [COAG] Q6H 09/10/21 19:30 PTT,PARTIAL THROMBOPLSTIN TIME [COAG] Q6H 09/11/21 01:30 PTT,PARTIAL THROMBOPLSTIN TIME [COAG] Q6H Plan: Patient is 80-year-old female history of dementia and A. fib brought in today for possible stroke. On exam patient move all extremities CT scan is negative patient does have elevated troponin and looks to be have an NSTEMI we will start patient on heparin drip we did speak to the high voltage electrician over in [place] and they do not have any bed which we also called [facility] and no one has any bed availability at the moment we will continue to care for patient here.
--- NOTE | 2021-09-09 12:44 | CT ---
INDICATION: Altered mental status TECHNIQUE: Head CT without contrast. COMPARISON: July 28, 2021 FINDINGS: CSF spaces: Within normal limits for age. Brain parenchyma: There are nonspecific low attenuation white matter changes consistent with chronic microvascular disease. No sign of mass, hemorrhage, or midline shift. Skull base and calvarium: The visualized paranasal sinuses and mastoid air cells demonstrate no acute or significant findings. The visualized orbits are grossly unremarkable. No skull fractures. There is intracranial atherosclerosis. IMPRESSION: 1. No acute findings. 2. Nonspecific white matter disease, typical of chronic microvascular disease. Please note that all CT scans at this facility use dose modulation, iterative reconstruction, and/or weight-based dosing when appropriate to reduce radiation dose to as low as reasonably achievable. Dictated by Denisha Lucas MD @ 09/09/2021 12:42:16 PM (Electronically Signed)
[2021-09-09 12:51] LABS: BLOOD UREA NITROGEN,BUN 23 mg/dL (7.0-18.0); CHLORIDE,CL 103 mmol/L (98-107); GLUCOSE RANDOM 236 mg/dL (74-106); POTASSIUM,K 3.7 mmol/L (3.5-5.1); SODIUM,NA 137 mmol/L (136-145)
--- NOTE | 2021-09-09 13:07 | CR ---
INDICATION: Stroke TECHNIQUE: Chest radiograph 1 view COMPARISON: None FINDINGS: The sensitivity and specificity of the exam are severely limited by the patient`s body habitus. Mediastinum: The central pulmonary arteries are enlarged and likely due to pulmonary hypertension. The heart silhouette is normal in size and morphology. Lung: Very small lung volumes are present with mild ground-glass infiltrates noted diffusely in both lungs. No sign of pleural effusion seen. No pneumothorax is identified. Bone and Soft tissue: Unremarkable for age. Left axillary dissection clips are noted. IMPRESSIONS: 1. Very small lung volumes are present with mild ground-glass infiltrates noted diffusely in both lungs. This may be due to atelectasis but pulmonary edema cannot be excluded. 2. The central pulmonary arteries are enlarged and likely due to pulmonary hypertension. Dictated by Delbert Rodriguez MD @ 09/09/2021 1:05:35 PM Dictated by: Delbert Rodriguez MD @ 09/09/2021 13:05:39 (Electronically Signed)
[2021-09-09] MEDS ORDERED: Heparin Sodium/0.45% NaCl 500 ML IV SCH ×3 (13:15→14:00)
[2021-09-09] MEDS ORDERED: Aspirin 81 MG Tab.Chew PO ONE (13:15)
[2021-09-09] MEDS ORDERED: Clopidogrel 75 MG Tab PO ONE (13:15)
[2021-09-09] MEDS ORDERED: Heparin Sodium 5,000 Units/ML Vial IVPUSH ONE (13:19)
[2021-09-09] MEDS ORDERED: Iopamidol 755 MG/ML 500 ML Multipack Bottle IVPUSH STA (13:21)
[2021-09-09] MEDS ORDERED: Nitroglycerin 0.4 MG Tab.SL SL PRN (13:27)
[2021-09-09] MEDS ORDERED: Metoprolol Tartrate 5 MG/5 ML SDV IVPUSH ONE (13:28)
--- NOTE | 2021-09-09 14:12 | CT ---
DATE: 09/09/2021. CLINICAL HISTORY: Acute neurological deficit. TECHNIQUE: Standard helical CT image acquisition through the neck was performed after intravenous contrast bolus enhancement. Multiplanar reconstructed images were performed and interpreted. COMPARISON: None available. FINDINGS: Markedly degraded examination due to suboptimal timing of the scan relative to the intravenous contrast bolus. In particular, assessment of the proximal and mid cervical arterial vasculature is nondiagnostic. Mild (less than 50 percent) atherosclerotic luminal stenoses of the bilateral proximal internal carotid arteries by NASCET criteria. The more distal cervical segments of the internal carotid arteries are patent. The mid to distal cervical segment of the left vertebral artery is patent. Minimal, if any, opacification of the cervical and intracranial right vertebral artery may be related to occlusion versus examination technique, as above. There is occlusion of the P1-P2 junction of the left posterior cerebral artery of uncertain chronicity. Multifocal [id number] luminal stenoses within the right posterior cerebral artery. At least moderate luminal stenoses involving the origins of the superior and inferior trunks of the right MCA as well as the superior trunk of the left MCA. Multifocal luminal stenoses are also seen within the more distal M2-M3 segments of the bilateral middle cerebral arteries. There are prominent eccentric filling defects within the main left pulmonary artery extending into the inferior lobar branch. The thyroid gland is unremarkable. Degenerative changes of the cervical spine. IMPRESSION: 1. 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 2. Intracranial atherosclerosis with multifocal luminal stenosis of the anterior and posterior circulation, including the M2-M3 segments of the MCAs and the right [employer]. 3. Mild (less than 50 percent) atherosclerotic luminal stenoses of the bilateral proximal internal carotid arteries by NASCET criteria. 4. No opacification of the cervical or intracranial right vertebral artery which may reflect a true occlusion versus poor timing of the scanning relative to the contrast bolus, as above. 5. Filling defects within left pulmonary arteries, as above, which are eccentric within the lumen. This is favored to reflect chronic pulmonary emboli; however, if there is concern for acute emboli, CT chest PE protocol could be obtained. Please note that all CT scans at this facility use dose modulation, iterative reconstruction, and/or weight-based dosing when appropriate to reduce radiation dose to as low as reasonably achievable. Dictated by Pepe Jin MD @ 09/09/2021 2:11:39 PM (Electronically Signed)
--- NOTE | 2021-09-09 14:12 | CT ---
DATE: 09/09/2021. CLINICAL HISTORY: Acute neurological deficit. TECHNIQUE: Standard helical CT image acquisition through the neck was performed after intravenous contrast bolus enhancement. Multiplanar reconstructed images were performed and interpreted. COMPARISON: None available. FINDINGS: Markedly degraded examination due to suboptimal timing of the scan relative to the intravenous contrast bolus. In particular, assessment of the proximal and mid cervical arterial vasculature is nondiagnostic. Mild (less than 50 percent) atherosclerotic luminal stenoses of the bilateral proximal internal carotid arteries by NASCET criteria. The more distal cervical segments of the internal carotid arteries are patent. The mid to distal cervical segment of the left vertebral artery is patent. Minimal, if any, opacification of the cervical and intracranial right vertebral artery may be related to occlusion versus examination technique, as above. There is occlusion of the P1-P2 junction of the left posterior cerebral artery of uncertain chronicity. Multifocal [id number] luminal stenoses within the right posterior cerebral artery. At least moderate luminal stenoses involving the origins of the superior and inferior trunks of the right MCA as well as the superior trunk of the left MCA. Multifocal luminal stenoses are also seen within the more distal M2-M3 segments of the bilateral middle cerebral arteries. There are prominent eccentric filling defects within the main left pulmonary artery extending into the inferior lobar branch. The thyroid gland is unremarkable. Degenerative changes of the cervical spine. IMPRESSION: 1. 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 2. Intracranial atherosclerosis with multifocal luminal stenosis of the anterior and posterior circulation, including the M2-M3 segments of the MCAs and the right [employer]ATOR. 3. Mild (less than 50 percent) atherosclerotic luminal stenoses of the bilateral proximal internal carotid arteries by NASCET criteria. 4. No opacification of the cervical or intracranial right vertebral artery which may reflect a true occlusion versus poor timing of the scanning relative to the contrast bolus, as above. 5. Filling defects within left pulmonary arteries, as above, which are eccentric within the lumen. This is favored to reflect chronic pulmonary emboli; however, if there is concern for acute emboli, CT chest PE protocol could be obtained. Please note that all CT scans at this facility use dose modulation, iterative reconstruction, and/or weight-based dosing when appropriate to reduce radiation dose to as low as reasonably achievable. Dictated by Pepe Jin MD @ 09/09/2021 2:11:19 PM (Electronically Signed)
[2021-09-09] MEDS ORDERED: Sodium Chloride 0.9% 1,000 ML IV ONE (16:39)
--- NOTE | 2021-09-09 16:47 | PCM.EKG ---
#2 Interpretation EKG Date: 09/09/21 Time: 16:36 Rhythm: A-Fib Rate (Beats/Min): 67 ST-T: Depressed
[2021-09-09] MEDS ORDERED: Iodixanol 652 MG/ML 100 ML Bottle IVPUSH STA (17:14)
--- NOTE | 2021-09-09 18:16 | CT ---
INDICATION: Stroke code neuro symptoms. Pulmonary embolism. Abnormal CTA neck exam. TECHNIQUE: CT chest PE was acquired with 100 cc Visipaque 320 IV contrast. COMPARISON: CTA neck September 09, 2021. CT chest January 16, 2021. FINDINGS: Heart and vasculature: There is ill-defined prominence of soft tissue in the hilar regions bilaterally. This abnormal soft tissue in the left hilar region is either having mass effect on or is infiltrating the wall of the left main pulmonary artery as demonstrated on series 401, image 98. Pulmonary arteries otherwise appear patent. No other signs of pulmonary embolism. Heart is mildly enlarged with particular dilatation of the left ventricle and atrium.Great vessels are normal in caliber. There is reflux of contrast into the IVC suggesting right heart failure. Lungs and pleural: No suspicious nodules or infiltrates. Mild bibasilar atelectasis. Mild interlobular septal thickening. No pleural effusions, pleural thickening, or pneumothorax. Lymph nodes/mediastinum: Moderate prominence of ill-defined soft tissue in the hilar regions bilaterally is believed to represent lymph tissue. No other signs of lymphadenopathy in the chest. Chest wall: No masses. Upper abdomen: No acute or significant findings. Bones: Unremarkable for age. IMPRESSION: 1. Moderate prominence of suspected lymph tissue in the pulmonary hilar regions bilaterally. This soft tissue prominence on the left appears to be causing a filling defect in the wall of the left main pulmonary artery. This could be secondary to external mass effect versus infiltration of the artery. The significance of this suspected abnormal lymph tissue is otherwise uncertain. Otherwise no sign of pulmonary embolism. 2. Findings consistent with mild CHF without overt edema. Please note that all CT scans at this facility use dose modulation, iterative reconstruction, and/or weight-based dosing when appropriate to reduce radiation dose to as low as reasonably achievable. Dictated by Warren Donaldson MD @ 09/09/2021 6:15:57 PM (Electronically Signed)
[2021-09-09] MEDS ORDERED: LORazepam 0.5 MG Tab PO ONE (19:35)
== END 2021-09-09 19:44 ==
LOC: MW.ED 12:10
DX: I21.4 Non-ST elevation (NSTEMI) myocardial infarction (principal); I48.91 Unspecified atrial fibrillation; I25.2 Old myocardial infarction; Z79.01 Long term (current) use of anticoagulants; Z79.899 Other long term (current) drug therapy; Z20.822 Contact with and (suspected) exposure to COVID-19
CPT/HCPCS: 36415; 70450; 70496; 70498; 71045; 71275; 80053; 84484; 85025; 85610; 85730; 93005; 96365; 96375; 96376; 99285; A9270; J1644; J3490; J7030; Q9967; U0002